=== PATIENT | male | born 1990 | race Caucasian/White ===

== ENCOUNTER 2019-01-31 21:09 | Inpatient (IN) | payer OTHER ==
[2019-01-31] MEDS: NS 0.9% 1000 ML** 1,000 ML IV SCH (23:43)
[2019-01-31] MEDS ORDERED: Dexmedetomidine* 1,000 MCG in NS 0.9% 250 ML* 240 ML IV SCH (23:45)
[2019-01-31 23:46] LABS: ABS Lymphocytes 0.7 10^3/ul (1.0-4.8); ABS Monocytes 0.3 10^3/ul (0-0.8); ABS Neutrophils 9.9 10^3/ul (1.5-7.7); Eosinophil % 0.2 %; Hematocrit 39 % (42-52); Hemoglobin 12.9 g/dL (14.0-18.0); Lymphocyte % 6.7 %; Mean Corpuscular HGB Conc 33 g/dL (31-36); Mean Corpuscular Hemoglobin 30 pg (27-31); Mean Corpuscular Volume 89 fL (80-94); Mean Platelet Volume 7.6 fL (7.4-10.4); Nucleated Red Blood Cells % 0.1; Platelet Count 203 10^3/uL (150-450); Red Blood Count 4.32 10^6 /uL (4.18-5.48); Red Cell Distribution Width 13 % (10-15); White Blood Count 11.1 10^3/uL (3.5-10.8)
[2019-01-31 23:50] LABS: INR 0.97 (0.82-1.09)
[2019-02-01 00:01] LABS: Albumin 3.6 g/dL (3.2-5.2); Albumin/Globulin Ratio 1.5 (1-3); BUN/Creatinine Ratio 11.9 (8-20); Calcium 8.6 mg/dL (8.6-10.3); EGFR African American 129.8 (>60); EGFR Non-African American 107.3 (>60); Globulin 2.4 g/dL (2-4); Potassium 4.4 mmol/L (3.5-5.0); Total Bilirubin 0.3 mg/dL (0.2-1.0)
--- NOTE | 2019-02-01 00:16 | HP ---
History of Present Illness - History of Present Illness Reason for Visit: opioid overdose History of Present Illness: 28 year old male with history of polysubstance abuse was brought in as a transfer from outside facility. He was originally found at home by his girlfriend unresponsive next to a bunch of substances ( kristie, bath salt, meth.. ). Pt then was brought to an outside facility and received 3 doses of narcan. He woke up and became agitated and combative. He was started on a versed drip and transferred to [facility]. He looked sluggish on arrival, vitals were stable. Versed drip discontinued. - Past Medical History Psych: Addictions Review of Systems - Measurements Intake and Output: Intake and Output Last 24 Hours 01/29/19 01/30/19 01/31/19 02/01/19 06:59 06:59 06:59 06:59 Output Total 550 Balance -550 Weight 155 lb 6.814 oz Output: Vasquez 550 - Review of Systems Constitutional Symptoms: Negative: Weight Gain, Weight Loss, Weakness, Fatigue, Fever, Night Sweats, Unexplained Falls, Other Dermatology: Negative: Normal, Rash, Skin Lesions, Cancer, Skin Lumps, Other HEENT: Negative: Normal, Change in Hearing, Vertigo, Dental Problems, Tinnitus, Sinus Problem, Other Eyes: Negative: Normal, Change in Vision, Double Vision, Eye Pain, Glaucoma, Cataract, Contacts or Glasses, Other Thyroid: Negative: Normal, Goiter, Thyroid Nodule, Cold Intolerance, Heat Intolerance , Sweatiness, Tremor, Frequent Defecation, Constipation, Palpitations, Primary Hypothyroidism, Primary Hyperthyroidism, Weight Loss, Weight Gain, Change in Skin/Hair, Change in Menstruation, Radiation Exposure, Other Pulmonary: Negative: Normal, Cough, Sputum, Hemoptysis, Wheezing, Respiratory Distress, Shortness of Breath, COPD, Asthma, Exercise Intolerance, Home Oxygen, Other Cardiology: Negative: Normal, Chest Pain, Shortness of Breath, Palpitations, Swelling of Ankles, Peripheral Vascular Dis, Edema, Faintness, Syncope, Claudication, Proximal NocturnalDyspnea, Orthopnoea, Other Gastroenterology: Negative: Normal, Abdominal Pain, Nausea, Vomiting, Anorexia, Indigestion, Difficulty Swallowing, Heartburn, Constipation, Diarrhea, Blood in Stools, Change in Bowel Habits, Haematemesis, Melena, Other Hematologic/Lymphatic: Negative: Anemia, Easy Bruising, Hx Leukemia, Hx Lymphoma, Use of Anticoagulant, Use of Antiplatelet Drugs, Other Neurology: Negative: Normal, Headache, Migraines, Change in Vision, Diplopia, Dizziness , Change in Balancing, Change in Coordination, Change in Memory, Change in Speech, Change in Sphincter Function, Change in Walking, Numbness\Paresthesiae, Unexplained Weakness, Hx of Stroke\TIA, Hx of Seizures, Other Psychiatry: Negative: Normal, Depression, Anxiety, Depressed Mood, Anhedonia, Sexual Dysfunction, Weight Change, Guilt Feelings, Tearfulness, Unusual Fatigue, Unusual Anxiety, Suicidal Ideation, Hypomania, Eating Disorders, Other Allergic/Immunologic: Negative: Hx Anaphylaxis, Hx Angioedema, Hx Environmental, Hx Seasonal, Asthma, Hx HIV, Immunocompromise, Swollen Glands LymphNodes, Other Objective Active Medications: Heparin Sodium (Porcine) (Heparin Vial(*)) 5,000 units SUBCUT Q8HR [facility] Sodium Chloride (Ns 0.9% 1000 Ml) 1,000 mls @ 125 mls/hr IV PER RATE [facility] Last Admin: 01/31/19 23:43 Dose: 125 mls/hr Dexmedetomidine HCl 1,000 mcg/ (Sodium Chloride) 250 mls @ 1.75 mls/hr IV Q24H [facility]; Protocol Vital Signs - 8 hr 01/31/19 01/31/19 01/31/19 22:23 22:28 23:00 Temperature 98.7 F Pulse Rate 87 99 89 Respiratory 25 25 22 Rate Blood Pressure 133/94 (mmHg) O2 Sat by Pulse 98 100 99 Oximetry Oxygen Devices in Use Now: None Appearance: sluggish, not in distress. Slow to respond Eyes: No Scleral Icterus, PERRLA Ears/Nose/Mouth/Throat: NL Teeth, Lips, Gums, Mucous Membranes Moist Neck: NL Appearance and Movements; NL JVP, Trachea Midline, No Thyroid Enlargement, Masses Respiratory: Symmetrical Chest Expansion and Respiratory Effort, Clear to Auscultation Cardiovascular: NL Sounds; No Murmurs; No JVD, No Edema Abdominal: NL Sounds; No Tenderness; No Distention, No Hepatosplenomegaly Skin: No Rash or Ulcers Neurological: Alert and Oriented x 3, NL Sensation, NL Muscle Strength and Tone Result Diagrams: 01/31/19 23:38 01/31/19 23:38 Assess/Plan/Problems-Billing Assessment: - Patient Problems (1) Polysubstance abuse Current Visit: Yes Status: Acute Code(s): F19.10 - OTHER PSYCHOACTIVE SUBSTANCE ABUSE, UNCOMPLICATED SNOMED Code(s): 984334573 Comment: found unresponsive. S/P 3 doses of Narcan and versed Pt now awake, vitals stable supportive care critical care 30 min (2) Agitation Current Visit: Yes Status: Acute Code(s): R45.1 - RESTLESSNESS AND AGITATION SNOMED Code(s): 583597493 Comment: versed drip D/C ativan and precedex drip as needed for agitation (3) DVT prophylaxis Current Visit: Yes Status: Acute Code(s): Z29.9 - ENCOUNTER FOR PROPHYLACTIC MEASURES, UNSPECIFIED SNOMED Code(s): 975014685 Comment: heparin sq (4) Full code status Current Visit: Yes Status: Acute Code(s): Z78.9 - OTHER SPECIFIED HEALTH STATUS SNOMED Code(s): 592269948
[2019-02-01] MEDS: Heparin VIAL(*) 5000 UNITS/ML VIAL (FIVE THOUSAND) SUBCUT SCH ×2 (00:35→05:45)
[2019-02-01] MEDS ORDERED: Lidocaine 2% JELLY* 6 ML JELLY TOPICAL ONE ×2 (01:00→01:17)
[2019-02-01] MEDS: NS 0.9% 1000 ML** 1,000 ML IV SCH (07:51)
[2019-02-01 12:46] VITALS: BP 109/70
--- NOTE | 2019-02-01 22:22 | DS ---
CC: Dr. Kristian Jose * DISCHARGE SUMMARY: DATE OF ADMISSION: 01/31/19 DATE OF DISCHARGE: 02/01/19 PRIMARY CARE PROVIDER: Dr. Kristian Jose, Alejandro Garcia. DISPOSITION ON DISCHARGE: Home. CONDITION ON DISCHARGE: Improved. MEDICATIONS ON DISCHARGE: None. PRIMARY DIAGNOSIS: Narcotic overdose. SECONDARY DIAGNOSIS: Polysubstance abuse. PERTINENT LABORATORY DATA: None. PERTINENT IMAGING: None. HISTORY OF PRESENT ILLNESS AND HOSPITAL COURSE: This is a 28-year-old man with past medical history of polysubstance abuse, which has included daily IV heroin , was brought to [facility] unresponsive after polysubstance ingestion which may have included Ecstasy, bath salts, methamphetamines, heroin earlier in the day and then Soma proximal to his loss of consciousness or his obtundation. At [facility], he received 3 doses of Narcan, became agitative and combative at which time that facility started him on Versed drip and [place] [facility] Notes from his presentation indicated that he was sluggish on arrival; however, Versed drip was discontinued. No other sedation was required. He received no other Narcan throughout his hospital stay [place] [facility] On the day of discharge, he was awake, interactive, felt back to his baseline, was eating, and ambulatory. He did receive a left femoral central access at [facility] prior to transportation to our facility, which was removed prior to his discharge. We discussed at length resources available should he want to seek additional assistance for rehabilitation. He declined at this time. He declined any referrals to providers, the prescribed Suboxone. He was discharged of his own accord, stable with followup requested at his primary care provider in [place], which he requested to arrange on his own. There are no complications during the course of this hospital stay. At followup, please; 1. I would encourage referral to additional rehabilitation services if requested patient. At the time of stay here at [facility], he had felt he had tried and failed many times, was not yet interested in attempting rehab. 2. No other specific labs or vitals that are pending at the time of discharge. TIME SPENT: Greater than 45 minutes were spent on the discharge of the patient , greater than half was spent [id number] with the patient. [id number]/[facility] #: [id number] [facility]
== END 2019-02-01 12:50 | disposition home or self-care (01) | DRG 816 ==
LOC: ICU 22:21
PROVIDERS: ADMIT Student in an Organized Health Care Education/Training Program; ATTEND Internal Medicine
DX: T40.1X1A Poisoning by heroin, accidental (unintentional), initial encounter (principal); T43.621A Poisoning by amphetamines, accidental (unintentional), initial encounter; F11.10 Opioid abuse, uncomplicated; Y92.9 Unspecified place or not applicable; R45.1 Restlessness and agitation
CPT/HCPCS: 36415; 80053; 83735; 85025; 85610; 87641; J1644